=== PATIENT | female | born 1970 | race Caucasian/White ===

== ENCOUNTER 2020-06-09 08:11 | Emergency (ER) | payer OTHER ==
[~2020-06-09] VITALS: Ht 154.9 cm; Wt 112.3 kg
[2020-06-09 08:19] VITALS: BP 155/83
--- NOTE | 2020-06-09 09:31 | NUR ---
ASSISSTED WITH PELVIC AND TAMPON PLASTIC PART REMOVAL WHICH WAS SUCCESSFUL. PLASTIC APPLICATOR INTACT.
== END 2020-06-09 09:43 | disposition home or self-care (01) ==
LOC: ER 08:12
DX: T19.2XXA Foreign body in vulva and vagina, initial encounter (principal); Z88.1 Allergy status to other antibiotic agents; Z88.2 Allergy status to sulfonamides; Z88.8 Allergy status to other drugs, medicaments and biological substances; X58.XXXA Exposure to other specified factors, initial encounter; Y93.89 Activity, other specified; Y92.89 Other specified places as the place of occurrence of the external cause; Y99.8 Other external cause status
CPT/HCPCS: 99284